=== PATIENT | male | born 1985 | race Caucasian/White ===

== ENCOUNTER 2016-07-06 05:00 | Inpatient (IN) | payer MEDICAID ==
[2016-07-06] VITALS (7 sets, daily range): BP systolic 82–129; BP diastolic 40–85
[~2016-07-06] VITALS: Ht 175.2 cm; Wt 91.7 kg
--- NOTE | ~2016-07-06 | EKG ---
[place], [place] ELECTROCARDIOGRAM REPORT NAME: EDSON HOUSER UNIT #: [id number] ROOM: 524 DOCTOR: GRISELDA PERALES MD BIRTHDATE: [birth year] DOS: 07/06/2016 TIME: 1341. FINDINGS: Normal sinus rhythm. Normal electrocardiogram. GRISELDA PERALES MD CM:EKGRPT:ELECTROCARDIOGRAM REPORT [id number] GRISELDA PERALES MD
--- NOTE | ~2016-07-06 | O ---
[place], [place] OPERATIVE NOTE NAME: [id number] UNIT #: [id number] ROOM: 524 DOCTOR: ZACK DAIGLE DO BIRTHDATE: [birth year] DOS: 07/07/2016 PREPROCEDURE DIAGNOSES: Left distal one-third of the tibia shaft fracture with comminution and displacement and proximal fibular shaft fracture. POSTOPERATIVE DIAGNOSES: Left distal one-third of the tibia shaft fracture with comminution and displacement and proximal fibular shaft fracture. OPERATIVE PROCEDURE: Intramedullary yovani fixation of the left distal tibial shaft fracture. SURGEON: Zack Daigle DO. SENIOR FOREMAN: Delfino. ANESTHESIA: MARTIN Powers. INDICATIONS: The patient is a 31-year-old male with a history of a fall early in the morning on 07/06/2016, suffering a comminuted distal tibial shaft fracture, the metaphyseal-diaphyseal junction with comminution and minimal displacement. There is also noted to be a posterior malleolar fracture as well and a proximal fibular shaft fracture. The risks and benefits of the procedure were explained to the patient preoperatively. Preoperative labs and x-rays were obtained. PROCEDURE IN DETAIL: The left lower extremity was marked in the holding room. The patient was brought to the operative suite. Timeout was performed. General anesthetic with LMA intubation was performed. The patient received Ancef 2 grams IV piggyback preoperatively. The fracture site was evaluated under C-arm guidance from multiple angles. The left lower extremity was prepped and draped in usual orthopedic fashion. Tourniquet was applied to the left upper thigh, but not inflated. Under C-arm guidance, the proximal entry point was marked with a marking pen. A midline patellar incision was planned and marked from the middle patella to the tibial tubercle. The area was injected with Marcaine 0.5% with epinephrine. The incision was made sharply with a scalpel. Subcutaneous tissue was spread down to the level of the paratenon. Paratenon was divided. The patellar tendon was identified. Self-retaining retractors were utilized. The patellar tendon was divided in a longitudinal fashion at the level of the proximal articular surface of the tibia. A partially threaded K-wire was used as a guidewire at the proximal tibia and advanced through the metaphysis under C-arm guidance. When this was found to be adequate, the cannulated awl was placed over the K-wire and advanced under C-arm guidance. The ball-tip guidewire was placed from proximal to distal under C-arm guidance as the fracture was tractioned distally. When this was completed, the length of the guidewire was measured and found to be 34 cm in length. With the tendon protected, the reaming began with an 8 mm reamer and this was noted to be quite snug. Reaming progressed to the 8.5 and 9 mm reamer. Decision was made to place the 7.5 x 34 cm [place] tibial nail over the guidewire and advanced this distally as the reduction was held at the fracture site. When the positioning [place], [place] OPERATIVE NOTE NAME: COLTENJAVIEREDSON MORRELL UNIT #: [id number] ROOM: [facility] DOCTOR: ZACK DAIGLE DO BIRTHDATE: [birth year] was adequate, the guidewire was removed. Under freehand technique, the two distal locking screws were placed. The C-arm was used to identify the distal locking holes as perfect circles and the drill bit was brought in to a 90 degree position. The area was injected with Marcaine. Subcutaneous tissue was spread down to the level of bone. A mallet was used to advance the drill bit under C-arm guidance and the drill bit was then advanced through the distal locking hole to the lateral cortices of the tibia. The length was measured and two 4 mm screws were placed at a 90 degree angle to each other, 40 and 42 mm. When this was completed, all angles were evaluated, the fracture site was noted to be intact and attention was turned to the proximal tibia. Under C-arm guidance, the two static screws were placed at 90 degree angles using the radiolucent guide and the triple-cannula system. The cannula was advanced to the level of the skin. The area was injected with Marcaine 0.5% with epinephrine. A small incision was made. Subcutaneous tissue was spread down to the level of the bone with hemostat. The guide system was advanced to the level of the bone. The calibrated drill was utilized to enter the proximal locking hole in the static position. The length was measured. A 5 x 30 mm screw was placed by hand from lateral to medial and in a similar fashion, a 5 x 34 mm screw was placed from medial to lateral. When this was completed, all positions were again evaluated under C-arm guidance. The set screw was tightened proximally to hold the proximal locking screws in place. The guide system was removed. A 10 mm end cap was placed in the proximal end of the tibial nail. C-arm was again utilized to evaluate all areas of locking screws, both proximally and distally as well as the fracture site. All incisions were copiously irrigated with normal saline and closed in a layered fashion using 0 Vicryl to close the patellar tendon, followed by 2-0 Vicryl for the paratenon and 2-0 Vicryl for the subcutaneous layer. The proximal incision closure was completed with skin jose. The smaller incisions for the proximal and distal locking screws were closed with 2-0 Vicryl followed by skin jose. All incisions were again injected with Marcaine 0.5% with epinephrine. Xeroform, 4 x 4s, bulky Garland dressing and ABDs were applied followed by an Jovanni bandage. The anesthetic was reversed. The patient was extubated and taken to the recovery room in satisfactory condition. COUNT: Sponge and needle count correct. ESTIMATED BLOOD LOSS: 50 mL. SPECIMENS: None. DRAINS: None. PACKING: None. COMPLICATIONS: None. FINDINGS: Comminuted displaced fracture of the distal one-third of the tibia at [place], [place] OPERATIVE NOTE NAME: EDSON HOUSER UNIT #: [id number] ROOM: 524 DOCTOR: ZACK DAIGLE DO BIRTHDATE: [birth year] the metaphyseal-diaphyseal junction, proximal fibular fracture, posterior malleolar fracture of the tibia. IMPLANTS: Biomet [place] tibial nail 7.5 x 34 cm, proximal screws 5 x 34 mm and 5 x 30 mm, distal screws 4 x 40 mm and 4 x 42 mm, end cap 10 mm. ZACK DAIGLE DO CM:OPRECORD:OPERATIVE NOTE [id number] 02 ZACK DAIGLE DO 07/07/162102 interface
[~2016-07-06 05:00] MED LIST: FLEXERIL10 MG PO; HYDROCODONE BIT1 T11 PO; MOTRIN800 MG PO
[2016-07-06 06:02] LABS: BASO # 0.1 10*3/uL (0.0-0.1); BASO % 0.3 % (0.0-1.0); EOS # 0.1 10*3/uL (0.0-0.4); EOS % 0.7 % (1.0-4.0); HEMATOCRIT 46.6 % (42.0-52.0); HEMOGLOBIN 15.7 g/dl (14.0-18.0); IG # 0.1 10*3/uL (0.0-0.1); LYMPH # 2.4 10*3/uL (1.3-4.4); LYMPH % 14.9 % (27.0-41.0); MEAN CELL VOLUME 91.6 fl (80.0-94.0); MEAN CORPUSCULAR HGB 30.8 pg (27.0-31.0); MEAN CORPUSCULAR HGB CONC 33.7 g/dl (33.0-37.0); MEAN PLATELET VOLUME 9.8 fl (9.6-12.3); MONO # 1.3 10*3/uL (0.1-1.0); NEUT # 12.3 10*3/uL (2.3-7.9); NEUT % 75.4 % (47.0-73.0); PLATELET COUNT AUTOMATED 320 10*3/uL (130-400); RED BLOOD COUNT 5.09 10*6/uL (4.50-5.90); RED CELL DISTRI WIDTH 12.6 % (0-14.5); WHITE BLOOD COUNT 16.4 10*3/uL (4.8-10.8)
[2016-07-06 06:17] LABS: BUN 10 mg/dl (7-24); CARBON DIOXIDE 26 mmol/L (21-32); CHLORIDE 101 mmol/L (98-107); EST GLOM FILT AFRICAN AMERICAN > 60 ml/min; GLUCOSE 110 mg/dL (65-99); SODIUM 137 mmol/L (136-145)
[2016-07-07] VITALS (14 sets, daily range): BP systolic 113–140; BP diastolic 61–91
[2016-07-07 07:12] LABS: BASO % 0.3 % (0.0-1.0); EOS # 0.2 10*3/uL (0.0-0.4); EOS % 1.7 % (1.0-4.0); LYMPH # 2.2 10*3/uL (1.3-4.4); LYMPH % 25.5 % (27.0-41.0); MEAN CELL VOLUME 93.8 fl (80.0-94.0); MEAN CORPUSCULAR HGB CONC 33.1 g/dl (33.0-37.0); MEAN PLATELET VOLUME 9.9 fl (9.6-12.3); MONO # 0.9 10*3/uL (0.1-1.0); MONO % 10.7 % (3.0-9.0); NEUT # 5.4 10*3/uL (2.3-7.9); NEUT % 61.5 % (47.0-73.0); PLATELET COUNT AUTOMATED 290 10*3/uL (130-400); RED BLOOD COUNT 4.32 10*6/uL (4.50-5.90); RED CELL DISTRI WIDTH 12.6 % (0-14.5); WHITE BLOOD COUNT 8.8 10*3/uL (4.8-10.8)
[2016-07-07 07:18] LABS: HEMATOCRIT 40.5 % (42.0-52.0); HEMOGLOBIN 13.4 g/dl (14.0-18.0)
[2016-07-07 07:47] LABS: ALBUMIN 3.3 gm/dl (3.1-4.5); BUN 10 mg/dl (7-24); CARBON DIOXIDE 28 mmol/L (21-32); CHLORIDE 103 mmol/L (98-107); GLUCOSE 107 mg/dL (65-99); MAGNESIUM 2.1 mg/dL (1.5-2.1); POTASSIUM 4.1 mmol/L (3.5-5.1); SGPT/ALT 27 U/L (12-78); SODIUM 138 mmol/L (136-145)
[2016-07-07 07:55] LABS: HEMOGLOBIN A1c 5.5 % (4.8-5.6)
[2016-07-07 07:59] LABS: ALKALINE PHOSPHATASE 78 U/L (45-117); BILIRUBIN, TOTAL 0.5 mg/dl (0.2-1.0); CHOLESTEROL 182 mg/dL (<200); EST GLOM FILT AFRICAN AMERICAN > 60 ml/min; HDL CHOLESTEROL 46 mg/dl (40-60); LDL CHOLESTEROL 109 mg/dL (9-159); PHOSPHOROUS 2.3 mg/dL (2.5-4.9); SGOT/AST 12 IU/L (3-35); TOTAL PROTEIN 6.8 gm/dL (6.4-8.2); TRIGLYCERIDES 134 mg/dl (<150); VLDL CHOLESTEROL 27 mg/dL (6-40)
[2016-07-07 08:33] LABS: VITAMIN D, 25-HYDROXY 14.4 ng/mL (30-100)
[2016-07-08] VITALS: BP 116/58
[2016-07-08 06:09] LABS: BASO % 0.2 % (0.0-1.0); EOS % 0.1 % (1.0-4.0); HEMATOCRIT 37.1 % (42.0-52.0); HEMOGLOBIN 12.2 g/dl (14.0-18.0); IG # 0.1 10*3/uL (0.0-0.1); LYMPH # 1.5 10*3/uL (1.3-4.4); LYMPH % 12.9 % (27.0-41.0); MEAN CELL VOLUME 93.7 fl (80.0-94.0); MEAN CORPUSCULAR HGB 30.8 pg (27.0-31.0); MEAN CORPUSCULAR HGB CONC 32.9 g/dl (33.0-37.0); MONO # 1.3 10*3/uL (0.1-1.0); NEUT # 8.9 10*3/uL (2.3-7.9); NEUT % 75.3 % (47.0-73.0); PLATELET COUNT AUTOMATED 277 10*3/uL (130-400); RED BLOOD COUNT 3.96 10*6/uL (4.50-5.90); RED CELL DISTRI WIDTH 12.4 % (0-14.5); WHITE BLOOD COUNT 11.9 10*3/uL (4.8-10.8)
[2016-07-08 06:42] LABS: BUN 7 mg/dl (7-24); CARBON DIOXIDE 27 mmol/L (21-32); CHLORIDE 106 mmol/L (98-107); EST GLOM FILT AFRICAN AMERICAN > 60 ml/min; GLUCOSE 127 mg/dL (65-99); POTASSIUM 4.2 mmol/L (3.5-5.1); SODIUM 142 mmol/L (136-145)
[2016-07-08 08:00] VITALS: BP 124/78
[2016-07-08 12:00] VITALS: BP 142/93
[2016-07-08] MEDS ORDERED: WALKER DEVI (13:40)
[2016-07-08 16:00] VITALS: BP 139/85
[2016-07-08 20:00] VITALS: BP 138/82
[2016-07-09] VITALS: BP 140/90
[2016-07-09 08:00] VITALS: BP 138/89
[2016-07-09 12:00] VITALS: BP 136/88
[2016-07-09] MEDS ORDERED: VITAMIN D50000 I3 PO (13:46)
[2016-07-09] MEDS ORDERED: OXYCODONE HCL5 MG PO (13:46)
== END 2016-07-09 14:16 | disposition home health service (06) | DRG 493 ==
LOC: ED 05:00 → EDHOLD 07:12 → 5E 07:12
PROVIDERS: Emergency Medicine Emergency Medical Services; Internal Medicine
PROC: 0QSH06Z Reposition Left Tibia with Intramedullary Internal Fixation Device, Open Approach (ICD-10-PCS; principal; 2016-07-07)
DX: S82.302A Unspecified fracture of lower end of left tibia, initial encounter for closed fracture (principal); E44.0 Moderate protein-calorie malnutrition; R65.10 Systemic inflammatory response syndrome (SIRS) of non-infectious origin without acute organ dysfunction; N25.81 Secondary hyperparathyroidism of renal origin; F10.120 Alcohol abuse with intoxication, uncomplicated; M25.512 Pain in left shoulder; M25.532 Pain in left wrist; F17.210 Nicotine dependence, cigarettes, uncomplicated; S82.452A Displaced comminuted fracture of shaft of left fibula, initial encounter for closed fracture; Z68.29 Body mass index [BMI] 29.0-29.9, adult; Y90.9 Presence of alcohol in blood, level not specified; Z88.8 Allergy status to other drugs, medicaments and biological substances; Z79.899 Other long term (current) drug therapy; Z79.1 Long term (current) use of non-steroidal anti-inflammatories (NSAID); Z71.6 Tobacco abuse counseling; W10.8XXA Fall (on) (from) other stairs and steps, initial encounter; Y93.89 Activity, other specified; Y92.89 Other specified places as the place of occurrence of the external cause; Y99.8 Other external cause status

== ENCOUNTER → 2016-07-21 | Outpatient (CLI) | payer MEDICAID ==
[~2016-07-21] MED LIST changes: +OXYCODONE HCL5 MG PO; +VITAMIN D50000 I3 PO; +WALKER DEVI
== END | disposition home or self-care (01) ==
LOC: ORTHO 03:14
DX: S82.431D Displaced oblique fracture of shaft of right fibula, subsequent encounter for closed fracture with routine healing (principal); S89.102D Unspecified physeal fracture of lower end of left tibia, subsequent encounter for fracture with routine healing; X58.XXXD Exposure to other specified factors, subsequent encounter

== ENCOUNTER → 2016-08-11 | Outpatient (CLI) | payer MEDICAID | END | disposition home or self-care (01) | LOC: MRI 07-13 08:06 | DX: M75.102 Unspecified rotator cuff tear or rupture of left shoulder, not specified as traumatic (principal) ==

== ENCOUNTER → 2016-08-19 | Outpatient (CLI) | payer MEDICAID | END | disposition home or self-care (01) | LOC: ORTHO 02:05 | DX: S82.302D Unspecified fracture of lower end of left tibia, subsequent encounter for closed fracture with routine healing (principal); S82.492D Other fracture of shaft of left fibula, subsequent encounter for closed fracture with routine healing; X58.XXXD Exposure to other specified factors, subsequent encounter ==

== ENCOUNTER → 2016-09-16 | Outpatient (CLI) | payer OTHER | END | disposition home or self-care (01) | LOC: ORTHO 02:16 | DX: S82.402D Unspecified fracture of shaft of left fibula, subsequent encounter for closed fracture with routine healing (principal); X58.XXXD Exposure to other specified factors, subsequent encounter ==

== ENCOUNTER → 2016-10-17 | Outpatient (CLI) | payer OTHER | END | disposition home or self-care (01) | LOC: ORTHO 02:10 | DX: S82.202D Unspecified fracture of shaft of left tibia, subsequent encounter for closed fracture with routine healing (principal); S82.402D Unspecified fracture of shaft of left fibula, subsequent encounter for closed fracture with routine healing; X58.XXXD Exposure to other specified factors, subsequent encounter ==

== ENCOUNTER → 2016-11-09 | Outpatient (CLI) | payer OTHER | END | disposition home or self-care (01) | LOC: EDSTATUS 12:00 | DX: M25.512 Pain in left shoulder (principal) ==

== ENCOUNTER → 2016-11-17 | Outpatient (CLI) | payer OTHER | END | disposition home or self-care (01) | LOC: ORTHO 02:28 | DX: S82.292D Other fracture of shaft of left tibia, subsequent encounter for closed fracture with routine healing (principal) ==

== ENCOUNTER → 2016-12-21 | Outpatient (CLI) | payer OTHER | END | disposition home or self-care (01) | LOC: ORTHO 03:08 | DX: S82.292D Other fracture of shaft of left tibia, subsequent encounter for closed fracture with routine healing (principal); X58.XXXD Exposure to other specified factors, subsequent encounter ==

== ENCOUNTER 2017-07-28 18:01 | Emergency (ER) | payer BC ==
[~2017-07-28] VITALS: Wt 97.5 kg
[2017-07-28] MEDS ORDERED: NAPROSYN500 MG PO (18:13)
[2017-09-04] MEDS ORDERED: MULTIPLE VITAM1 EAC1 PO (11:06)
[2017-09-04] MEDS ORDERED: MOTRIN IB200 M1 PO (11:06)
[2017-09-04] MEDS ORDERED: FLONASE ALLERG9.9 ML NAS (11:07)
[2017-09-07] MEDS ORDERED: ZOFRAN4 MG PO (11:53)
[2017-09-07] MEDS ORDERED: PERCOCET 5-3251 EACH PO (11:54)
== END 2017-07-28 19:22 | disposition home or self-care (01) ==
LOC: ED 18:01
DX: G89.29 Other chronic pain (principal); M25.572 Pain in left ankle and joints of left foot; R03.0 Elevated blood-pressure reading, without diagnosis of hypertension; F17.200 Nicotine dependence, unspecified, uncomplicated; Z90.49 Acquired absence of other specified parts of digestive tract; Z88.8 Allergy status to other drugs, medicaments and biological substances

== ENCOUNTER → 2017-09-07 | Day surgery (SDC) | payer BC ==
[2017-09-04 12:46] LABS: BASO # 0.1 10*3/uL (0.0-0.1); BASO % 0.9 % (0.0-1.0); EOS # 0.3 10*3/uL (0.0-0.4); EOS % 3.3 % (1.0-4.0); HEMATOCRIT 50.4 % (42.0-52.0); HEMOGLOBIN 16.5 g/dl (14.0-18.0); LYMPH # 2.3 10*3/uL (1.3-4.4); LYMPH % 24.5 % (27.0-41.0); MEAN CELL VOLUME 92.6 fl (80.0-94.0); MEAN CORPUSCULAR HGB 30.3 pg (27.0-31.0); MEAN CORPUSCULAR HGB CONC 32.7 g/dl (33.0-37.0); MEAN PLATELET VOLUME 10.4 fl (9.6-12.3); MONO # 0.7 10*3/uL (0.1-1.0); MONO % 7.7 % (3.0-9.0); NEUT # 5.9 10*3/uL (2.3-7.9); PLATELET COUNT AUTOMATED 339 10*3/uL (130-400); RED BLOOD COUNT 5.44 10*6/uL (4.50-5.90); RED CELL DISTRI WIDTH 12.7 % (0-14.5); WHITE BLOOD COUNT 9.3 10*3/uL (4.8-10.8)
[2017-09-04 13:15] LABS: CHLORIDE 103 mmol/L (98-107); POTASSIUM 4.7 mmol/L (3.5-5.1); SODIUM 140 mmol/L (136-145)
[2017-09-04 13:31] LABS: BUN 16 mg/dl (7-24); CREATININE 0.87 mg/dL (0.70-1.30)
[~2017-09-07] VITALS: Ht 175.2 cm; Wt 97.5 kg
[~2017-09-07] MED LIST changes: +FLONASE ALLERG9.9 ML NAS; +MOTRIN IB200 M1 PO; +MULTIPLE VITAM1 EAC1 PO; +NAPROSYN500 MG PO; +PERCOCET 5-3251 EACH PO; +ZOFRAN4 MG PO
--- NOTE | ~2017-09-07 | O ---
[place], [place] OPERATIVE NOTE NAME: EDSON HOUSER [facility] #: [id number] UNIT #: [id number] ROOM: DOCTOR: ZACK MCNEAL DO BIRTHDATE: [birth year] DOS: 09/07/2017 PREPROCEDURE DIAGNOSIS: Left tibial retained hardware. POSTPROCEDURE DIAGNOSIS: Left tibial retained hardware. PROCEDURE: Removal of two distal locking screws, left tibia. INDICATIONS: The patient is a 32-year-old male with a history of a left tib-fib fracture on 07/06/2016. The fracture has completely healed after intramedullary yovani fixation on 07/07/2016. The patient was returned to work full duty, but has discomfort from a prominent screw distally. He has requested removal of the distal locking screws. Preoperative labs and x-rays were obtained. The risks and benefits of the procedure were explained to the patient preoperatively. PROCEDURE IN DETAIL: The patient was brought to the operative suite after the left lower extremity had been marked in the holding room. He was placed supine on the operative table. A general anesthetic with LMA intubation was performed. The patient received Ancef 2 grams IV piggyback preoperatively. Time-out was performed. The left lower extremity was prepped and draped in the usual orthopedic fashion. Tourniquet was applied to the left upper thigh. The leg was exsanguinated and the tourniquet was inflated to 350 mmHg. C-arm was used to identify the two distal locking screws in the distal tibial intramedullary yovani. The area about the medial to lateral screw was injected with Marcaine 0.5% with epinephrine. A 1 cm incision was made. Subcutaneous tissue was spread down to the level of the skin. The screw head was identified and cleared of any soft tissue. This was removed manually. The area was curetted and irrigated with normal saline. Attention was then turned to the anterior screw. The area was injected with Marcaine 0.5% with epinephrine. A 1 cm incision was made. The subcutaneous tissue was spread down to the level of the screw head. The screw head was cleared of any soft tissue debris. The screw was removed manually. The screw hole was curetted and copiously irrigated with normal saline. The incisions were closed with 2-0 Vicryl followed by 3-0 Prolene and nylon. Xeroform, 4 x 4s, ABD and cast padding were applied followed by an Jovanni bandage. The tourniquet was released. The anesthetic was reversed. The patient was extubated and taken to the recovery room in satisfactory condition. COUNTS: Sponge and needle count correct. ESTIMATED BLOOD LOSS: 5 mL. DRAINS: None. PACKING: None. SPECIMENS: Two distal locking screws were sent to the lab. [place], [place] OPERATIVE NOTE NAME: EDSON HOUSER UNIT #: [id number] ROOM: DOCTOR: ZACK MCNEAL DO BIRTHDATE: [birth year] COMPLICATIONS: None. ZACK MCNEAL DO CM:OPRECORD:OPERATIVE NOTE 1730 [id number] ZACK MCNEAL DO 09/07/17 1748 interface
[2017-09-07 09:10] VITALS: BP 129/75
[2017-09-07 11:15] VITALS: BP 131/83
[2017-09-07 11:30] VITALS: BP 116/73
[2017-09-07 11:45] VITALS: BP 112/73
[2017-09-07 12:00] VITALS: BP 112/75
[2017-09-07 12:11] VITALS: BP 118/79
== END | disposition home or self-care (01) ==
LOC: SDC 09-04 10:15
PROVIDERS: Orthopaedic Surgery
DX: T84.84XA Pain due to internal orthopedic prosthetic devices, implants and grafts, initial encounter (principal); M25.572 Pain in left ankle and joints of left foot; Z87.81 Personal history of (healed) traumatic fracture; J45.909 Unspecified asthma, uncomplicated; K21.9 Gastro-esophageal reflux disease without esophagitis; F41.9 Anxiety disorder, unspecified; F32.9 Major depressive disorder, single episode, unspecified; F17.210 Nicotine dependence, cigarettes, uncomplicated; Z98.890 Other specified postprocedural states; Z79.899 Other long term (current) drug therapy; Z87.19 Personal history of other diseases of the digestive system; Y83.8 Other surgical procedures as the cause of abnormal reaction of the patient, or of later complication, without mention of misadventure at the time of the procedure

== ENCOUNTER 2019-10-08 16:19 | Emergency (ER) | payer BC ==
[~2019-10-08] VITALS: Ht 175.2 cm; Wt 99.8 kg
[2019-10-08 18:19] LABS: BILIRUBIN NEGATIVE (NEGATIVE); CLARITY CLEAR (CLEAR); COLOR YELLOW (YELLOW); GLUCOSE NEGATIVE (NEGATIVE); KETONE NEGATIVE (NEGATIVE)
[2019-10-08 18:20] LABS: BLOOD 1+ (NEGATIVE); LEUKO ESTERASE NEGATIVE (NEGATIVE); NITRITE NEGATIVE (NEGATIVE); SPECIFIC GRAVITY 1.025 (1.005-1.030); UROBILINOGEN 0.2 E.U./dl (0.2-1.0)
[2019-10-08 18:31] LABS: EPITHELIAL CELLS 0-2; WBC 0-2 wbc/hpf (0-5)
[2019-10-08 18:32] LABS: BACTERIA 1+; HYALINE CAST 0-2; MUCOUS TRACE
[2019-10-08 19:04] LABS: BASO # 0.1 10*3/uL (0.0-0.1); BASO % 0.7 % (0.0-1.0); EOS # 0.3 10*3/uL (0.0-0.4); EOS % 2.6 % (1.0-4.0); HEMATOCRIT 45.1 % (42.0-52.0); LYMPH # 2.1 10*3/uL (1.3-4.4); LYMPH % 17.7 % (27.0-41.0); MEAN CELL VOLUME 91.1 fl (80.0-94.0); MEAN CORPUSCULAR HGB 29.5 pg (27.0-31.0); MEAN CORPUSCULAR HGB CONC 32.4 g/dl (33.0-37.0); MEAN PLATELET VOLUME 9.8 fl (9.6-12.3); MONO % 8.7 % (3.0-9.0); NEUT # 8.2 10*3/uL (2.3-7.9); PLATELET COUNT AUTOMATED 345 10*3/uL (130-400); RED BLOOD COUNT 4.95 10*6/uL (4.50-5.90); RED CELL DISTRI WIDTH 12.7 % (0-14.5); WHITE BLOOD COUNT 11.7 10*3/uL (4.8-10.8)
[2019-10-08 19:18] LABS: ALBUMIN 4.1 gm/dl (3.1-4.5); ALKALINE PHOSPHATASE 96 U/L (45-117); BUN 13 mg/dl (7-24); CHLORIDE 106 mmol/L (98-107); CREATININE 0.92 mg/dL (0.70-1.30); POTASSIUM 3.9 mmol/L (3.5-5.1); SGOT/AST 19 IU/L (3-35); SGPT/ALT 44 U/L (12-78); SODIUM 136 mmol/L (136-145); TOTAL PROTEIN 8.3 gm/dL (6.4-8.2)
[2019-10-08] MEDS ORDERED: LEVOFLOXACIN500 MG PO (21:58)
== END 2019-10-08 22:11 | disposition home or self-care (01) ==
LOC: ED 16:19
PROVIDERS: Nurse Practitioner
DX: N44.2 Benign cyst of testis (principal); N45.1 Epididymitis; K21.9 Gastro-esophageal reflux disease without esophagitis; F41.9 Anxiety disorder, unspecified; F32.9 Major depressive disorder, single episode, unspecified; Z88.8 Allergy status to other drugs, medicaments and biological substances; Z79.899 Other long term (current) drug therapy; Z90.49 Acquired absence of other specified parts of digestive tract

== ENCOUNTER → 2020-03-02 | Outpatient (CLI) | payer BC ==
[~2020-03-02] MED LIST changes: +LEVOFLOXACIN500 MG PO
== END | disposition home or self-care (01) ==
LOC: US 09:30
PROVIDERS: ATTEND Urology
DX: N50.89 Other specified disorders of the male genital organs (principal)